=== PATIENT | female | born 1960 | race Caucasian/White ===

== ENCOUNTER 2020-01-12 06:56 | Day surgery (SDC) | payer OTHER, SELFPAY ==
[2020-01-08 10:37] VITALS: BMI 32.3
--- NOTE | 2020-01-11 12:05 | HO.ANESPROP2 ---
Documented by User: Sarina Vargas 01/11/20 12:08 HPI - Anesthesia Eval Consult details Narrative: 59yo F for colonoscopy: f/u of ischemic colitis 05/2019 [facility] Past Medical History Medical History History of back pain Hx of cancer of uterus Ischemic colitis Surgical History Surgical History H/O: hysterectomy Hx of colonoscopy Social History Social History Smoking Status: Former smoker Years Smoked: 2 Smoked in Last 30 Days: No Smoking Quit Date: 34 years ago Patient Interested in Nicotine Replacement: No Patient Given Instructions on How to Stop Smoking: No Second Hand Smoke Exposure: No Use of substances other than those prescribed or required for medical reasons: No Advance Directives: No Advance Directives Information Provided: No Advance Directives on File: No Meds Allergies Allergy/AdvReac Type Severity Reaction Status Date / Time amoxicillin Allergy Hives Verified 01/08/20 10:37 Home Medications Medication Instructions Recorded Confirmed Type lactobacillus combination no.4 01/08/20 01/08/20 History [Probiotic] Exam Exam Date and Time: January 11, 2020 1205 Height,Weight and Vital Signs: Height 5 ft 6 in Weight 90.718 kg Assessment and Plan Assessment Anesthesia Assessment: Chart Reviewed Documented by User: Rian Mancera 01/12/20 08:06 [facility] Past Medical History Medical History History of back pain Hx of cancer of uterus Ischemic colitis Surgical History Surgical History H/O: hysterectomy Hx of colonoscopy Social History Social History Smoking Status: Former smoker Years Smoked: 2 Smoked in Last 30 Days: No Smoking Quit Date: 34 years ago Patient Interested in Nicotine Replacement: No Patient Given Instructions on How to Stop Smoking: No Second Hand Smoke Exposure: No Use of substances other than those prescribed or required for medical reasons: No Advance Directives: No Advance Directives Information Provided: No Advance Directives on File: No Meds Allergies Allergy/AdvReac Type Severity Reaction Status Date / Time amoxicillin Allergy Hives Verified 01/08/20 10:37 Home Medications Medication Instructions Recorded Confirmed Type lactobacillus combination no.4 01/08/20 01/08/20 History [Probiotic] Exam Airway Mallampati Class: II TM Dist: >3cm Neck ROM: Full Denture: Upper Partial: Upper
[2020-01-12 07:37] VITALS: BMI 32.3
[2020-01-12 07:40] VITALS: BP 141/66; PULSE 78; RESP 16; TEMP 36.7; O2SAT 96
[2020-01-12] MEDS: Lactated Ringers 1,000 ML 100 ML IVCONT (07:40)
--- NOTE | 2020-01-12 08:01 | MHC.SHP ---
Pre-Procedural Eval Section B Chief Complaint: Colitis Details of Present Illness: ischemic colitis; see H&P no changes Relevant Family History (Specify if Yes): No Relevant Social History: None Present Medications: see Short Stay Collaborative assessment Medical History: No relevant PMH History of Previous Operations: No relevant previous surgery Allergies: Allergies Allergy/AdvReac Type Severity Reaction Status Date / Time amoxicillin Allergy Hives Verified 01/08/20 10:37 Review of Systems Sugical H&P ROS: Negative: Constitution, Cardiovascular, Respiratory, Neurological, Psychiatric, Hem-Onc, Allergic/Immunologic, Gastrointestinal, Genitourinary, Musculoskeletal, Integumentary, Endocrine and Eyes/Ears/Nose/Throat Exam Surgical H&P Exam: Normal: HEENT, Normal: Heart, Normal: Lungs, Normal: Extremities, Normal: Abdomen, Normal: Skin and Normal: Neurological Plan Diagnosis/Plan: Unchanged Patient has been examined and remains a candidate for the planned procedure
--- NOTE | 2020-01-12 08:32 | PM.OP ---
Brief Operative Note Date of procedure: 01/12/20 Pre-op diagnosis: ischemic colitis Post-op diagnosis: other (normal) Procedure: colonoscopy Surgeon: Tde Antonio Anesthesia: MAC Estimated blood loss (mL): 1 Pathology: other (ti/sigmoid biopsies) Condition: stable Disposition: PACU
[2020-01-12 08:35] VITALS: BP 93/51; PULSE 66; RESP 12; TEMP 36.2; O2SAT 99
[2020-01-12 08:48] VITALS: BP 129/64; PULSE 74; RESP 18; TEMP 36.1; O2SAT 96
--- NOTE | 2020-01-12 08:54 | OP_ITS ---
SURGEON: Ted Antonio MD INDICATIONS: Ischemic colitis and change in bowel habits. PREOPERATIVE DIAGNOSIS: POSTOPERATIVE DIAGNOSIS: PROCEDURE PERFORMED: Colonoscopy to the terminal ileum with biopsy. ESTIMATED BLOOD LOSS: COMPLICATIONS: ANESTHESIA: ASSISTANTS: SPECIMENS: MEDICATIONS: Monitored anesthesia care. DESCRIPTION OF PROCEDURE: History and physical performed. The risks and benefits of the procedure were explained to the patient. Informed consent was obtained. The patient was placed in the left lateral decubitus position. A digital rectal exam was performed and was found to be normal. The Olympus pediatric video colonoscope was introduced into the rectum and advanced to the cecum without difficulty. The cecum was identified by transillumination, palpation, and identification of ileocecal valve. Examination was performed and the scope was removed. She tolerated the procedure well and was taken to recovery area in stable condition. FINDINGS: The terminal ileum was normal. This was biopsied. The visualized colonic mucosa was normal. This was biopsied. No polyps were identified. The quality of the prep was good. Random sigmoid biopsies were obtained because of the patient's change in bowel habits. There was no evidence of colitis. Retroflexed examination showed small internal hemorrhoids. There was very minimal diverticulosis in the sigmoid. IMPRESSION: Essentially normal colonoscopy. RECOMMENDATION: Follow up the biopsy results. Screening colonoscopy in 10 years. MD JAMEY Pittman/AUDIE / [id number] MTDD
== END 2020-01-12 09:23 | disposition home or self-care (01) ==
PROVIDERS: PCP Internal Medicine; Visit Provider Internal Medicine Gastroenterology
PROC: 0DJD8ZZ Inspection of Lower Intestinal Tract, Via Natural or Artificial Opening Endoscopic (ICD-10-PCS; CPT 45378; principal; 2020-01-12 08:00)
DX: K55.9 Vascular disorder of intestine, unspecified (principal); R19.4 Change in bowel habit; K57.30 Diverticulosis of large intestine without perforation or abscess without bleeding; K64.8 Other hemorrhoids; Z85.42 Personal history of malignant neoplasm of other parts of uterus; Z87.891 Personal history of nicotine dependence; Z88.1 Allergy status to other antibiotic agents
CPT/HCPCS: 45380; 88305